=== PATIENT | female | born 1985 | race Two or more races ===

== ENCOUNTER → 2024-08-29 | Outpatient (CLI) | payer OTHER, SELFPAY ==
[2024-08-29 11:18] LABS: Collection Type, Urine Clean Catch
[2024-08-29 11:48] LABS: Basophils # (Auto) 0.1 Thou/mm3 (0.0-0.2); Basophils % (Auto) 1 % (0-2.5); Eosinophils # (Auto) 0.1 Thou/mm3 (0.0-0.5); Eosinophils % (Auto) 1 % (0-10); Hematocrit 42.4 % (36.0-46.0); Hemoglobin 14.4 g/dL (12.0-16.0); Immature Granulocytes % (Auto) 0 % (0-0); Immature Granulocytes Auto 0.01 Thou/mm3 (0.00-0.00); Lymphocytes # (Auto) 1.7 Thou/mm3 (1.0-4.8); Lymphocytes % (Auto) 26 % (10-50); Mean Corpuscular Hemoglobin 28.9 pg (25.0-35.0); Mean Corpuscular Volume 85 fL (80-100); Monocytes # (Auto) 0.4 Thou/mm3 (0.0-0.8); Monocytes % (Auto) 7 % (0-12); Neutrophils # (Auto) 4.3 Thou/mm3 (1.8-7.7); Neutrophils % (Auto) 66 % (37-80); Nucleated Red Blood Cell % 0 /100 WBC (0); Platelet Count 279 Thou/mm3 (140-440); RDW Standard Deviation 38.5 fL (36.4-46.3); Red Blood Count 4.98 Miln/mm3 (4.00-5.20); White Blood Count 6.5 Thou/mm3 (3.6-11.0)
[2024-08-29 11:51] LABS: Bilirubin,Urine Negative (Negative); Blood,Urine Negative (Negative); Clarity,Urine Clear (Clear/Hazy); Color,Urine Lt-Yellow (Lt Yel-Yel); Glucose, Urine Negative (Negative); Ketones,Urine Negative (Negative); Leukocyte Esterase,Urine Positive (Negative); Nitrite,Urine Negative (Negative); PH,Urine 5.5 (5.0-7.0); Protein,Urine Negative (Neg - Trace); RBC,Urine 5 /hpf (0-3); Specific Gravity,Urine 1.034 (1.001-1.035); Squamous Epithelial Cell,Urine 7 /hpf (0-5); Urobilinogen,Urine Negative mg/dL (0.0-1.0); WBC,Urine 2 /hpf (0-5)
[2024-08-29 11:55] LABS: Glucose Estimated Average 103 mg/dL (80-131); Hemoglobin A1C 5.2 % Hgb (4.8-6.0)
[2024-08-29 12:22] LABS: Alanine Aminotransferase 14 U/L (10-49); Albumin, Serum 4.5 gm/dL (3.5-5.0); Albumin/Globulin Ratio 1.9 (1.2-2.2); Alkaline Phosphatase 95 U/L (46-116); Anion Gap 10 (7-16); Aspartate Amino Transferase 16 U/L (0-34); BUN/Creatinine Ratio 32 Ratio (12-20); Bilirubin,Total 0.7 mg/dL (0.3-1.2); Blood Urea Nitrogen 19 mg/dL (9-23); Calcium 8.6 mg/dL (8.3-10.6); Calcium (Corrected) 8.6 mg/dL (8.5-10.1); Carbon Dioxide 26.2 mMol/L (20.0-31.0); Cardiac Risk Estimate 3.4 RATIO (3.7-5.6); Chloride 105 mMol/L (98-107); Cholesterol 162 mg/dL (132-200); Creatinine (Component) 0.6 mg/dL (0.6-1.3); Ferritin 27 ng/mL (7.3-270.7); Globulin 2.4 gm/dL (2.3-3.5); Glucose 77 mg/dL (74-106); HDL Cholesterol 47 mg/dL (40-60); LDL Cholesterol,Calculated 106 mg/dL (0-130); Osmolality,Calculated 282 (275-295); Potassium 3.8 mMol/L (3.4-5.1); Sodium 141 mMol/L (136-145); Thyroid Stimulating Hormone 1.01 uIU/mL (0.55-4.78); Total Protein 6.9 gm/dL (5.7-8.2); Triglycerides 43 mg/dL (30-150); Uric Acid 3.9 mg/dL (3.1-7.8); Vitamin B12 711 pg/mL (211-911); Vitamin D 25 Hydroxy Total 24.6 ng/mL (7.3-40.2); eGFR > 60 See Note
== END | disposition home or self-care (01) ==
PROVIDERS: PCP Internal Medicine; Referring Provider Internal Medicine; Visit Provider Internal Medicine
DX: Z00.00 Encounter for general adult medical examination without abnormal findings (principal)
CPT/HCPCS: 36415; 80053; 80061; 81001; 82306; 82607; 82728; 83036; 84443; 84550; 85025

== ENCOUNTER → 2024-09-11 | Outpatient (CLI) | payer OTHER, SELFPAY ==
--- NOTE | 2024-09-11 13:50 | XR_ITS ---
Examination: Thyroid sonography complete TECHNIQUE: Grayscale sonographic images thyroid lobes Date and time: September 11, 2024 1357 hours INDICATIONS: Palpable lump in the right neck note is beginning 2 years ago FINDINGS: Right thyroid 5.4 cm Nodule upper pole 19 x 16 x 18 mm Left thyroid 5.3 cm Midpole nodule 5 x 4 mm IMPRESSION: Recommend CT soft tissue neck post intravenous contrast follow-up to differentiate upper pole solid nodule right thyroid versus lymph node adjacent to the upper pole right thyroid
== END | disposition home or self-care (01) ==
PROVIDERS: PCP Internal Medicine; Referring Provider Otolaryngology; Visit Provider Otolaryngology
DX: R22.1 Localized swelling, mass and lump, neck (principal)
CPT/HCPCS: 76536

== ENCOUNTER 2024-09-14 09:05 | Day surgery (SDC) | payer OTHER, SELFPAY ==
[2024-09-11 15:31] LABS: HCG Qualitative,Urine Negative
[2024-09-14] VITALS (9 sets, daily range): BP systolic 109–123; BP diastolic 67–78; PULSE 67–78; RESP 12–17; TEMP 36.5–36.6; O2SAT 96–100; BMI 31.7
[2024-09-14] MEDS: RINGERS LACTATED 1000 ML 1,000 ML 20 ML IV (09:50)
--- NOTE | 2024-09-14 11:40 | ESOP_ITS ---
Date of Procedure 09/14/24 Pre Op Diagnosis Right neck mass suspected thyroid tissue Post Op Diagnosis Right superior pole thyroid nodule Procedure Excision of right superior pole thyroid nodule Findings 15 mm nodule at the superior pole of the right lobe of the thyroid Procedure Description Indications: This 38-year-old female with rapidly enlarging right sided neck mass over the last several weeks. FNA was performed in the office which showed to be benign thyroid tissue. This was followed up with an ultrasound that could not confirm if it was actually in the thyroid gland itself. Patient wished to have the nodule removed. The risk of bleeding infection and potential need for further surgery were discussed. Patient was marked in the preoperative setting then transferred to the operative suite where she was anesthetized and intubated per LMA. Timeout was performed. The neck was then sterilely prepped and draped. The skin over the mass was injected with 1% lidocaine with 1 100,000 Mauro epinephrine as was the tissue deep to it. Care was taken to aspirate prior to injected. Approximately 3 cc total were used. A natural skin crease was used to make a transverse incision approximately 2 cm in length. The soft tissue was then dissected down to the platysma muscle which was vertically. Dissection was performed with blunt and sharp dissection around the nodule. The superior pole vessels were small and were controlled easily with bipolar cautery. The superior pole was delivered and dissection was carried down to where it was attached to the thyroid gland itself. Standard cautery was then used to transect through the base of the nodule in the superior lobe of the thyroid. No residual bleeding w as noted. The platysma muscle was reapproximated with a 4-0 Vicryl as was the subcutaneous layer of the incision. Dermabond was used on the skin. Patient tolerated the procedure well. Anesthesia other (General Per LMA) Pathology / specimen Other (Right thyroid nodule) Estimated Blood Loss 2 Surgeon Jett Rouse DO Surgical Staff Operation Date: 09/14/24 11:15 Case Staff Anesthesiologist: Thien Aparicio
--- NOTE | 2024-09-14 12:13 | SUR.PHASEI ---
1147: Pt received in [facility] via [place]. Report from Jaskaran NEELY and Dr. Aparicio. Pt groggy. Easily aroused. Resp even, unlabored. VS stable. Dressing to right anterior neck dry, clean, intact. No swelling, discoloration. Denies pain. 1214: Pt resting with no complaints voiced. Resp even, unlabored. VS stable. Dressing remains dry, clean, intact. No swelling, discoloration to surgical site.
--- NOTE | 2024-09-14 15:39 | SUR.PHASEII ---
1230: Pt more awake, alert. VS stable. Dressing to right anterior neck dry, clean, intact. No swelling, hematoma to surgical site. Pt states area tender with movement but pain tolerable. Did not wish to have any pain medication due to her breast feeding. Pt sitting up tolerating po fluids with no difficulty swallowing and no n/v. at bedside. 1300: Pt fully awake, oriented x3. VS stable. Dressing and surgical site unchanged. Pt and stated understanding of discharge instructions. 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 Pt discharged from [facility] in stable condition.
== END 2024-09-14 13:00 | disposition home or self-care (01) ==
PROVIDERS: Anesthesiology; PCP Internal Medicine; Referring Provider Otolaryngology; Visit Provider Otolaryngology
PROC: (CPT 60210; principal; 2024-09-14 11:00)
DX: E04.1 Nontoxic single thyroid nodule (principal)
CPT/HCPCS: 60210; 81025; A4217; A4649; J1100; J2704; J2765; J3010; J3490; J7120